=== PATIENT | male | born 1955 | race Caucasian/White ===

== ENCOUNTER 2018-12-02 12:00 | Inpatient (IN) | payer OTHER ==
[~2018-12-02] VITALS: Ht 167.6 cm; Wt 69.4 kg
[2018-12-02] MEDS ORDERED: ARICEPT5 MG (16:18)
[2018-12-02] MEDS ORDERED: DILANTIN100 MG PO (16:19)
[2018-12-02] MEDS ORDERED: TRILEPTAL300 MG PO (16:19)
[2018-12-07] MEDS ORDERED: OXYC1TAB9 PO (14:12)
[2018-12-07] MEDS ORDERED: ARICEPT5 MG PO (14:12)
== END 2018-12-07 14:31 | disposition home or self-care (01) | DRG 331 ==
LOC: O/R 12-04 07:00 → SURG 12-04 08:53 → O/R 12-04 12:00 → SURG 12-05 13:45
PROVIDERS: ADMIT Surgery
PROC: 07TB4ZZ Resection of Mesenteric Lymphatic, Percutaneous Endoscopic Approach (ICD-10-PCS; 2018-12-04)
PROC: 0DJD8ZZ Inspection of Lower Intestinal Tract, Via Natural or Artificial Opening Endoscopic (ICD-10-PCS; 2018-12-04)
PROC: 0DTN4ZZ Resection of Sigmoid Colon, Percutaneous Endoscopic Approach (ICD-10-PCS; principal; 2018-12-04 07:00)
DX: C18.7 Malignant neoplasm of sigmoid colon (principal); R59.0 Localized enlarged lymph nodes; F03.90 Unspecified dementia, unspecified severity, without behavioral disturbance, psychotic disturbance, mood disturbance, and anxiety; G40.909 Epilepsy, unspecified, not intractable, without status epilepticus